=== PATIENT | female | born 1940 | race Caucasian/White ===

== ENCOUNTER 2017-02-11 09:16 | Emergency (ER) | payer OTHER ==
[~2017-02-11] VITALS: Ht 172.7 cm; Wt 69.3 kg
[2017-02-11 09:18] VITALS: BP 138/75
[2017-02-11] MEDS ORDERED: INDOCIN50 MG PO (11:50)
== END 2017-02-11 12:03 | disposition home or self-care (01) ==
LOC: EME 09:16
DX: M79.672 Pain in left foot (principal); W10.9XXA Fall (on) (from) unspecified stairs and steps, initial encounter; F17.200 Nicotine dependence, unspecified, uncomplicated; I10 Essential (primary) hypertension; E78.00 Pure hypercholesterolemia, unspecified
CPT/HCPCS: 73630; 99281; 99284